=== PATIENT | female | born 1970 | race Two or more races ===

== ENCOUNTER 2017-08-31 15:10 | Emergency (ER) | payer BC ==
[~2017-08-31] VITALS: Ht 172.7 cm; Wt 91.6 kg
[~2017-08-31 15:10] MED LIST: ASP81EC PO; Atorvastatin Calcium PO; ESCI20TA PO; LAMO200T2 PO
[2017-08-31 15:46] VITALS: BP 125/84
[2017-08-31] MEDS ORDERED: SODIUM CHLORIDE 0.9% 1,000 ML IV ONE (16:27)
[2017-08-31 16:45] LABS: Basophils # (auto) 0.1 uL; Basophils % (auto) 1.5 % (0.0-2.0); Eosinophils # (auto) 0.1 uL; Eosinophils % (auto) 1.3 % (0.0-7.0); Hematocrit 38.2 % (36.0-46.0); Lymphocytes # (auto) 2.6 uL; Lymphocytes % (auto) 33.4 % (10.0-50.0); Mean Corpuscular Hemoglobin 31.9 pg (28.0-32.0); Mean Corpuscular Hgb Conc. 34.1 g/dL (32.0-36.0); Mean Corpuscular Volume 93.4 fL (80.0-100.0); Mean Platelet Volume 8.3 fL (6.9-10.8); Monocytes # (auto) 0.5 uL; Monocytes % (auto) 6.6 % (0.0-12.0); Neutrophils # (auto) 4.5 uL; Neutrophils % (auto) 57.2 % (37.0-80.0); Platelet Count (auto) 236 10^3/uL (140-450); Red Cell Distribution Width 13.8 % (11.8-14.3); White Blood Cell 7.9 10^3/uL (4.4-10.8)
[2017-08-31 16:58] LABS: INR 0.98 (0.9-1.15); Partial Thromboplastin Time 25.9 sec (22.64-33.71); Prothrombin Time 10.7 sec (9.37-12.3)
[2017-08-31 17:06] LABS: Albumin 3.4 g/dL (3.4-5.0); Bilirubin, Total 0.3 mg/dL (0.2-1.0); Calcium 8.4 mg/dL (8.5-10.1); Magnesium 2.4 mg/dL (1.6-2.6); Potassium 3.7 mmol/L (3.5-5.1); Total Protein 7.1 g/dL (6.4-8.2)
== END 2017-08-31 19:59 | disposition home or self-care (01) ==
LOC: ER 15:10
DX: R04.0 Epistaxis (principal); E78.5 Hyperlipidemia, unspecified; Z88.8 Allergy status to other drugs, medicaments and biological substances; Z79.899 Other long term (current) drug therapy; Z79.82 Long term (current) use of aspirin; Z79.02 Long term (current) use of antithrombotics/antiplatelets; Z98.51 Tubal ligation status; Z90.710 Acquired absence of both cervix and uterus; Z86.73 Personal history of transient ischemic attack (TIA), and cerebral infarction without residual deficits
CPT/HCPCS: 30901; 36415; 80053; 83735; 85025; 85610; 85730; 96360; 96361; 99285; J7030

== ENCOUNTER 2023-02-21 10:17 | Emergency (ER) | payer BC ==
[~2023-02-21] VITALS: Ht 172.7 cm; Wt 97.1 kg
[~2023-02-21 10:17] MED LIST changes: -ASP81EC PO; +ASPI-394 PO
[2023-02-21 10:49] LABS: Basophils # (auto) 0.1 10 ^3/uL (0-0.2); Basophils % (auto) 0.7 % (0.0-2.0); Eosinophils # (auto) 0.1 10 ^3/uL (0-0.8); Eosinophils % (auto) 1.6 % (0.0-7.0); Hematocrit 45.9 % (36.0-46.0); Hemoglobin 15.6 g/dL (12.2-16.2); Lymphocytes # (auto) 2.8 10 ^3/uL (0.4-5.4); Lymphocytes % (auto) 32.9 % (10.0-50.0); Mean Corpuscular Hemoglobin 31.5 pg (28.0-32.0); Mean Corpuscular Hgb Conc. 33.9 g/dL (32.0-36.0); Mean Corpuscular Volume 92.8 fL (80.0-100.0); Monocytes # (auto) 0.4 10 ^3/uL (0-1.3); Monocytes % (auto) 5.1 % (0.0-12.0); Neutrophils # (auto) 5.2 10 ^3/uL (1.6-8.6); Neutrophils % (auto) 59.7 % (37.0-80.0); Nucleated Red Blood Cells % 0.2 %; Red Blood Cells 4.95 10^6/uL (4.0-5.20); Red Cell Distribution Width 13.9 % (11.8-14.3); White Blood Cell 8.6 10^3/uL (4.4-10.8)
[2023-02-21 11:14] LABS: Potassium 4.1 mmol/L (3.5-5.1)
[2023-02-21 11:18] LABS: Albumin 3.8 g/dL (3.4-5.0); BUN/Creatinine Ratio 15.7 (10.0-20.0); Calcium 9.1 mg/dL (8.5-10.1)
[2023-02-21 11:21] LABS: Bilirubin, Total 0.3 mg/dL (0.2-1.0); Total Protein 7.4 g/dL (6.4-8.2)
[2023-02-21 14:43] VITALS: BP 133/67
[2023-02-21] MEDS ORDERED: HYDROcodone-ACET 10/325MG TAB PO ONE (14:45)
== END 2023-02-21 14:45 | disposition home or self-care (01) ==
LOC: ER 10:17
DX: R07.89 Other chest pain (principal); F41.9 Anxiety disorder, unspecified; F32.9 Major depressive disorder, single episode, unspecified; E78.5 Hyperlipidemia, unspecified; Z79.82 Long term (current) use of aspirin; Z79.899 Other long term (current) drug therapy; Z86.73 Personal history of transient ischemic attack (TIA), and cerebral infarction without residual deficits; Z90.710 Acquired absence of both cervix and uterus; Z90.49 Acquired absence of other specified parts of digestive tract; Z98.890 Other specified postprocedural states; Z88.8 Allergy status to other drugs, medicaments and biological substances
CPT/HCPCS: 36415; 71045; 80053; 84484; 85025; 93005

== ENCOUNTER 2024-07-07 12:59 | Inpatient (IN) | payer BC ==
[~2024-07-07] VITALS: Ht 172.7 cm; Wt 90.0 kg
[2024-07-07 13:34] LABS: Basophils # (auto) 0.1 10 ^3/uL (0-0.2); Basophils % (auto) 0.8 % (0.0-2.0); Eosinophils # (auto) 0.1 10 ^3/uL (0-0.8); Eosinophils % (auto) 1.3 % (0.0-7.0); Hematocrit 45.8 % (36.0-46.0); Hemoglobin 15.9 g/dL (12.2-16.2); Lymphocytes # (auto) 3.5 10 ^3/uL (0.4-5.4); Lymphocytes % (auto) 35.8 % (10.0-50.0); Mean Corpuscular Hemoglobin 32.5 pg (28.0-32.0); Mean Corpuscular Hgb Conc. 34.6 g/dL (32.0-36.0); Mean Corpuscular Volume 93.9 fL (80.0-100.0); Monocytes # (auto) 0.4 10 ^3/uL (0-1.3); Monocytes % (auto) 3.6 % (0.0-12.0); Neutrophils # (auto) 5.7 10 ^3/uL (1.6-8.6); Neutrophils % (auto) 58.5 % (37.0-80.0); Platelet Count (auto) 242 10^3/uL (140-450); Red Blood Cells 4.88 10^6/uL (4.0-5.20); Red Cell Distribution Width 14.5 % (11.8-14.3); White Blood Cell 9.8 10^3/uL (4.4-10.8)
[2024-07-07 13:50] LABS: Alanine Aminotransferase 77 U/L (7-40); Albumin 4.4 g/dL (3.2-4.8); Alkaline Phosphatase 104 U/L (46-116); Anion Gap 8 (5-15); Aspartate Aminotransferase 37 U/L (13-40); BUN/Creatinine Ratio 18.3 (10.0-20.0); Bilirubin, Total 0.5 mg/dL (0.2-1.0); Blood Urea Nitrogen 13 mg/dL (9-23); Calcium 9.5 mg/dL (8.7-10.4); Carbon Dioxide 24 mmol/L (20-30); Chloride 107 mmol/L (98-107); Glucose 133 mg/dL (74-106); Potassium 4.1 mmol/L (3.5-5.1); Sodium 139 mmol/L (136-145); Total Protein 6.9 g/dL (5.7-8.2)
[2024-07-07 14:04] LABS: Urine Bacteria None Seen /hpf (None Seen)
[2024-07-07 14:37] LABS: Urine Blood TRACE /uL (Negative); Urine Clarity Clear (Clear); Urine Color Light-Yellow (Yellow); Urine Hyaline Cast FEW /lpf (0 - 2); Urine Mucus FEW (None Seen); Urine Protein, UAD Negative (Negative); Urine Specific Gravity 1.023 (1.001-1.035); Urine Urobilinogen Normal (Negative); Urine WBC 1 /hpf (0 - 5); Urine pH 5.5 (5.0-9.0)
[2024-07-07] MEDS: NITROGLYCERIN 0.4 MG SL TAB SL ONE (16:05)
[2024-07-07] MEDS ORDERED: LABETALOL HCL 20 MG/4 ML VL IV ONE (18:45)
[2024-07-07] MEDS ORDERED: HYDROmorphone HCL 2 MG/ML VL/or syr IV PRN (19:15)
[2024-07-07] MEDS ORDERED: NITROGLYCERIN 0.4 MG SL TAB SL PRN (19:15)
[2024-07-07] MEDS ORDERED: ACETAMINOPHEN 325 MG TAB PO PRN (19:15)
[2024-07-07] MEDS ORDERED: DOCUSATE SOD 100 MG CAP PO PRN (19:15)
[2024-07-07] MEDS ORDERED: MORPHINE SULFATE INJ 2 MG/ml SYRG IV PRN (19:15)
[2024-07-07] MEDS ORDERED: ONDANSETRON HCL 4 MG/2 ML VIAL IV PRN (19:15)
[2024-07-07] MEDS ORDERED: HYDROcodone-ACET 5/325MG TAB PO PRN (19:15)
[2024-07-07] MEDS: SODIUM CHLOR 0.9% PF (SALINE LOCK) 10ML VIAL/SYR IV SCH (22:00)
[2024-07-08 01:00] VITALS: PULSE 66; RESP 15; O2SAT 95
[2024-07-08 04:53] LABS: Basophils # (auto) 0 10 ^3/uL (0-0.2); Basophils % (auto) 0.4 % (0.0-2.0); Eosinophils # (auto) 0.2 10 ^3/uL (0-0.8); Eosinophils % (auto) 1.7 % (0.0-7.0); Hematocrit 40.3 % (36.0-46.0); Hemoglobin 14.1 g/dL (12.2-16.2); Lymphocytes # (auto) 2.8 10 ^3/uL (0.4-5.4); Lymphocytes % (auto) 30.3 % (10.0-50.0); Mean Corpuscular Hemoglobin 32.8 pg (28.0-32.0); Mean Corpuscular Volume 93.6 fL (80.0-100.0); Monocytes # (auto) 0.5 10 ^3/uL (0-1.3); Monocytes % (auto) 5.2 % (0.0-12.0); Neutrophils # (auto) 5.7 10 ^3/uL (1.6-8.6); Neutrophils % (auto) 62.4 % (37.0-80.0); Platelet Count (auto) 213 10^3/uL (140-450); Red Cell Distribution Width 14.5 % (11.8-14.3); White Blood Cell 9.1 10^3/uL (4.4-10.8)
[2024-07-08 05:09] LABS: Alanine Aminotransferase 61 U/L (7-40); Albumin 4.2 g/dL (3.2-4.8); Alkaline Phosphatase 90 U/L (46-116); Anion Gap 8 (5-15); Aspartate Aminotransferase 24 U/L (13-40); BUN/Creatinine Ratio 13.2 (10.0-20.0); Blood Urea Nitrogen 10 mg/dL (9-23); Calcium 9.2 mg/dL (8.7-10.4); Carbon Dioxide 26 mmol/L (20-30); Chloride 105 mmol/L (98-107); Glucose 110 mg/dL (74-106); LDL Cholesterol 112 mg/dL (< 100); Potassium 3.9 mmol/L (3.5-5.1); Sodium 139 mmol/L (136-145); Triglycerides 212 mg/dL (< 150)
[2024-07-08 05:10] LABS: Bilirubin, Total 0.5 mg/dL (0.2-1.0); Cholesterol 183 mg/dL (< 200); HDL Cholesterol 49 mg/dL (40-59); Total Protein 6.8 g/dL (5.7-8.2)
[2024-07-08 09:41] VITALS: PULSE 69; RESP 12; O2SAT 95
[2024-07-08 10:21] LABS: Amphetamine Screen, Urine Neg (NEGATIVE); Barbiturate Scree,Urine Neg (NEGATIVE); Benzodiazephine Screen, Urine Neg (NEGATIVE); Cocaine Screen, Urine Neg (NEGATIVE)
[2024-07-08 10:22] LABS: Cannabinoid Screen, Urine Neg (NEGATIVE); Opiate Scree,Urine Neg (NEGATIVE); Phencyclidine Screen, Urine Neg (NEGATIVE)
[2024-07-08] MEDS: ENOXAPARIN SOD 40 MG/0.4 ML SYRINGE SC SCH (10:27)
[2024-07-08] MEDS: CLOPIDOGREL BISULFATE 75 MG TAB PO ONE (15:47)
[2024-07-08] MEDS: buPROPion HCL 75 MG TAB PO SCH (19:08)
[2024-07-08 20:00] VITALS: PULSE 61; RESP 17; O2SAT 94
[2024-07-08] MEDS: ATORVASTATIN 20 MG TAB PO SCH (22:01)
[2024-07-08 23:02] VITALS: BP 118/49; PULSE 60; RESP 18; TEMP 98.5; O2SAT 98
[2024-07-08 23:08] VITALS: PULSE 66
[2024-07-08 23:54] VITALS: BP 118/49; PULSE 60; RESP 18; TEMP 98.5; O2SAT 98
[2024-07-09] MEDS ORDERED: DIVA-91 PO (00:21)
[2024-07-09] MEDS ORDERED: BUPR150T8 PO (00:21)
[2024-07-09] MEDS ORDERED: ATOR20TA50 PO (00:21)
[2024-07-09] MEDS ORDERED: CLOP75TA28 PO (00:21)
[2024-07-09] MEDS ORDERED: BREX1TAB4 PO (00:21)
[2024-07-09 01:00] VITALS: BP 114/42; PULSE 64; RESP 17; TEMP 98.2; O2SAT 97
[2024-07-09 05:00] VITALS: BP 98/54; PULSE 87; RESP 17; TEMP 98.3; O2SAT 94
[2024-07-09 06:31] LABS: Basophils # (auto) 0.1 10 ^3/uL (0-0.2); Eosinophils # (auto) 0.2 10 ^3/uL (0-0.8); Eosinophils % (auto) 2.2 % (0.0-7.0); Hematocrit 41.4 % (36.0-46.0); Hemoglobin 14.2 g/dL (12.2-16.2); Lymphocytes # (auto) 2.9 10 ^3/uL (0.4-5.4); Mean Corpuscular Hemoglobin 32.2 pg (28.0-32.0); Mean Corpuscular Hgb Conc. 34.4 g/dL (32.0-36.0); Mean Corpuscular Volume 93.8 fL (80.0-100.0); Monocytes # (auto) 0.5 10 ^3/uL (0-1.3); Neutrophils # (auto) 4.7 10 ^3/uL (1.6-8.6); Neutrophils % (auto) 55.8 % (37.0-80.0); Nucleated Red Blood Cells % 0.1 %; Platelet Count (auto) 207 10^3/uL (140-450); Red Blood Cells 4.41 10^6/uL (4.0-5.20); Red Cell Distribution Width 14.6 % (11.8-14.3); White Blood Cell 8.4 10^3/uL (4.4-10.8)
[2024-07-09 06:52] LABS: Alanine Aminotransferase 68 U/L (7-40); Albumin 4.2 g/dL (3.2-4.8); Alkaline Phosphatase 87 U/L (46-116); Anion Gap 8 (5-15); Aspartate Aminotransferase 34 U/L (13-40); BUN/Creatinine Ratio 14.9 (10.0-20.0); Bilirubin, Total 0.5 mg/dL (0.2-1.0); Blood Urea Nitrogen 11 mg/dL (9-23); Carbon Dioxide 27 mmol/L (20-30); Chloride 105 mmol/L (98-107); Glucose 109 mg/dL (74-106); Potassium 4.1 mmol/L (3.5-5.1); Sodium 140 mmol/L (136-145); Total Protein 6.8 g/dL (5.7-8.2)
[2024-07-09 08:00] VITALS: PULSE 68; RESP 18
[2024-07-09 08:35] VITALS: BP 117/63; PULSE 60; RESP 18; TEMP 97.8; O2SAT 98
[2024-07-09] MEDS: ADENOSINE 76 MG in GIVE UN-DILUTED 0 ML IV ONE (08:43)
[2024-07-09 12:35] VITALS: BP 126/58; PULSE 67; RESP 18; TEMP 98; O2SAT 94
[2024-07-09] MEDS: CLOPIDOGREL BISULFATE 75 MG TAB PO SCH (13:15)
[2024-07-09] MEDS: FAMOTIDINE 20 MG TAB PO SCH (13:15)
[2024-07-09 16:25] VITALS: BP 95/57; PULSE 68; RESP 18; TEMP 98.9; O2SAT 96
== END 2024-07-09 18:20 | disposition home or self-care (01) | DRG 313 ==
LOC: ER 12:59 → TELE 19:13 → TELE-WESTW 07-08 22:44
PROVIDERS: ADMIT Nurse Practitioner Family; ATTEND Internal Medicine Geriatric Medicine
DX: R07.89 Other chest pain (principal); I69.354 Hemiplegia and hemiparesis following cerebral infarction affecting left non-dominant side; E78.5 Hyperlipidemia, unspecified; F31.9 Bipolar disorder, unspecified; E66.9 Obesity, unspecified; I10 Essential (primary) hypertension; Z90.710 Acquired absence of both cervix and uterus; Z90.49 Acquired absence of other specified parts of digestive tract; Z88.1 Allergy status to other antibiotic agents; Z80.3 Family history of malignant neoplasm of breast; Z80.1 Family history of malignant neoplasm of trachea, bronchus and lung; Z83.3 Family history of diabetes mellitus; Z82.49 Family history of ischemic heart disease and other diseases of the circulatory system; Z79.02 Long term (current) use of antithrombotics/antiplatelets; Z68.30 Body mass index [BMI] 30.0-30.9, adult
CPT/HCPCS: 36415; 71045; 78452; 80053; 80061; 80307; 81001; 83036; 83690; 83735; 83880; 84484; 85025; 93005; 93017; 93306; G0378; J0153

== ENCOUNTER 2025-04-19 09:11 | Outpatient (CLI) | payer BC ==
[~2025-04-19 09:11] MED LIST changes: +ATOR20TA50 PO; -Atorvastatin Calcium PO; +BREX1TAB4 PO; +BUPR150T8 PO; +CLOP75TA28 PO; +DIVA-91 PO
[2025-04-19 09:28] LABS: Basophils # (auto) 0.1 10 ^3/uL (0-0.2); Basophils % (auto) 0.6 % (0.0-2.0); Eosinophils # (auto) 0.1 10 ^3/uL (0-0.8); Eosinophils % (auto) 1.4 % (0.0-7.0); Hemoglobin 15.2 g/dL (12.2-16.2); Lymphocytes # (auto) 2.9 10 ^3/uL (0.4-5.4); Lymphocytes % (auto) 33.9 % (10.0-50.0); Mean Corpuscular Hemoglobin 32.9 pg (28.0-32.0); Mean Corpuscular Hgb Conc. 35.5 g/dL (32.0-36.0); Mean Corpuscular Volume 92.8 fL (80.0-100.0); Monocytes # (auto) 0.6 10 ^3/uL (0-1.3); Monocytes % (auto) 6.7 % (0.0-12.0); Neutrophils # (auto) 4.9 10 ^3/uL (1.6-8.6); Neutrophils % (auto) 57.4 % (37.0-80.0); Platelet Count (auto) 236 10^3/uL (140-450); Red Blood Cells 4.63 10^6/uL (4.0-5.20); Red Cell Distribution Width 13.9 % (11.8-14.3); White Blood Cell 8.5 10^3/uL (4.4-10.8)
[2025-04-19 10:24] LABS: Magnesium 2.2 mg/dL (1.6-2.6)
[2025-04-19 11:03] LABS: % Iron Saturation 24.5 % (15-50); Free T4 (Free Thyroxine) 1.17 ng/dL (0.89-1.76)
== END 2025-04-19 17:00 | disposition home or self-care (01) ==
LOC: LAB 09:11
PROVIDERS: ATTEND Family Medicine
DX: Z00.00 Encounter for general adult medical examination without abnormal findings (principal); Z76.89 Persons encountering health services in other specified circumstances; Z68.42 Body mass index [BMI] 45.0-49.9, adult; Z85.42 Personal history of malignant neoplasm of other parts of uterus
CPT/HCPCS: 36415; 80061; 82607; 83036; 83540; 83550; 83735; 84439; 84443; 85025

== ENCOUNTER 2025-08-03 14:58 | Outpatient (CLI) | payer OTHER | END 2025-08-03 17:00 | disposition home or self-care (01) | LOC: Rad HDHVI 14:58 | PROVIDERS: ATTEND Internal Medicine Cardiovascular Disease | DX: I08.0 Rheumatic disorders of both mitral and aortic valves (principal) | CPT/HCPCS: 93306 ==

== ENCOUNTER 2025-08-06 08:04 | Outpatient (CLI) | payer OTHER ==
[~2025-08-06] VITALS: Ht 172.7 cm; Wt 98.0 kg
[2025-08-06] MEDS ORDERED: ADENOSINE 90 MG/30 ML INJ IV ONE (09:07)
[2025-08-06] MEDS: ONDANSETRON HCL 4 MG/2 ML VIAL IV ONE (09:21)
[2025-08-06] MEDS: ONDANSETRON HCL 4 MG/2 ML VIAL ONE (09:24)
[2025-08-06] MEDS ORDERED: ADENOSINE 82 MG in GIVE UN-DILUTED 0 ML IV ONE (12:30)
== END 2025-08-06 17:00 | disposition home or self-care (01) ==
LOC: Rad HDHVI 08:04
PROVIDERS: ATTEND Internal Medicine Cardiovascular Disease
DX: I49.3 Ventricular premature depolarization (principal); I49.1 Atrial premature depolarization; R00.0 Tachycardia, unspecified; I10 Essential (primary) hypertension; I35.0 Nonrheumatic aortic (valve) stenosis; E78.00 Pure hypercholesterolemia, unspecified; Z13.6 Encounter for screening for cardiovascular disorders; Z82.49 Family history of ischemic heart disease and other diseases of the circulatory system
CPT/HCPCS: 78452; 93017; A9500; J0153; J2405